=== PATIENT | female | born 1960 | race Caucasian/White ===

== ENCOUNTER 2017-02-10 22:31 | Emergency (ER) | payer OTHER ==
[~2017-02-10] VITALS: Ht 162.6 cm; Wt 68.9 kg
--- NOTE | ~2017-02-10 | CR20 ---
[facility]. [facility] A Service of [facility] & [facility] RADIOLOGY TEXT RESULTS PATIENT: STELLA ALMEIDA LOCATION: SED : 60 UNIT #: [id number] AGE: [address]: JAMES STEEN SEX: F ORDER DR: [id number] [place] [id number] E MR#: [id number] Acc #: [id number] NAME: STELLA ALMEIDA. : 1960 SEX: F STUDY DATE/TIME: 02/10/2017 23:00 UNIT: SED ROOM: STUDY DESCRIPTION: CR Ankle Min 3 Views Lt Attending Physician: James Steen Aprn Ordering Physician: James Steen Aprn Primary Care Physician: Lisa Aburto M.D. MEDICAL IMAGING REPORT This report is preliminary unless electronic signature is present. EXAM Left ankle series INDICATION Left ankle pain after an injury today. PROCEDURE 3 views of the left ankle. COMPARISON None. FINDINGS Ankle mortise is intact. There is no fracture or dislocation. Small calcaneal spur. IMPRESSION No acute findings. Dictated by... Carter Jacques M.D. THIS IS AN ELECTRONICALLY VERIFIED REPORT Carter Jacques M.D. at 02/13/2017 10:01 PM CLARE/kaela TD: 02/11/2017 04:07 JOB #: [id number] MEDICAL IMAGING REPORT Page 1 of 1
--- NOTE | ~2017-02-10 | CR126 ---
[facility]. [facility] A Service of [facility] & [facility] RADIOLOGY TEXT RESULTS PATIENT: STELLA ALMEIDA LOCATION: SED : 60 UNIT #: [id number] AGE: [address]: JAMES STEEN SEX: F ORDER DR: [id number] [place] [id number] E MR#: [id number] Acc #: [id number] NAME: STELLA ALMEIDA : 1960 SEX: F STUDY DATE/TIME: 02/10/2017 23:10 UNIT: SED ROOM: STUDY DESCRIPTION: CR Foot Complete Min 3 View Lt Attending Physician: James Steen Aprn Ordering Physician: James Steen Aprn Primary Care Physician: Lisa Aburto M.D. MEDICAL IMAGING REPORT This report is preliminary unless electronic signature is present. EXAM Left foot series. INDICATION Left foot pain after an injury today. PROCEDURE Three views of the left foot. COMPARISON None FINDINGS No acute fracture or dislocation. IMPRESSION No acute findings. Dictated by... Carter Jacques M.D. THIS IS AN ELECTRONICALLY VERIFIED REPORT Carter Jacques M.D. at 02/13/2017 10:01 PM CLARE/selena TD: 02/11/2017 04:07 JOB #: [id number] MEDICAL IMAGING REPORT Page 1 of 1
[~2017-02-10 22:31] MED LIST: BACLOFEN10 MG; CIPRO PO; FLOMAX0.4 M1 DOB; LORTAB 5/500 TA1 TA1 PO; NORCO 7.5-3251 EACH PO; URIBEL CAPSULE1 EACH PO; VICODIN 5-3001 EACH; VICODIN 5/1 TAB 5/50 PO; ZOFRAN ODT4 MG DOB
[2017-02-10] MEDS ORDERED: HYDROCODON-ACE1 EA14 PO (22:40)
[2017-02-10] MEDS ORDERED: BACLOFEN10 MG PO (22:40)
[2017-02-10] MEDS ORDERED: MUSCLE RELAXER (22:41)
[2017-02-10] MEDS ORDERED: ZANAFLEX PO (22:42)
== END 2017-02-11 00:21 | disposition home or self-care (01) ==
LOC: SED 22:31
DX: S93.402A Sprain of unspecified ligament of left ankle, initial encounter (principal); Z88.0 Allergy status to penicillin; Z88.1 Allergy status to other antibiotic agents; X50.1XXA Overexertion from prolonged static or awkward postures, initial encounter
CPT/HCPCS: 29540; 73610; 73630; 99283